=== PATIENT | female | born 1945 | race African-American/Black ===

== ENCOUNTER 2017-02-06 17:31 | Emergency (ER) | payer MEDICARE, MEDICAID ==
[~2017-02-06] VITALS: Ht 160 cm; Wt 60.0 kg
[2017-02-06 23:09] LABS: BASOPHILS % 0.5 % (0.0-2.0); EOSINOPHILS % 3.6 % (0.0-5.0); HEMATOCRIT. 34.5 % (36.0-48.0); HEMOGLOBIN. 11.6 g/dL (12.0-16.0); LYMPHOCYTES % 19.5 % (20.0-50.0); MEAN CORPUSCULAR HEMOGLOBIN 30.3 pg (28.0-32.0); MEAN CORPUSCULAR VOLUME 90.2 fL (81.0-99.0); MEAN PLATELET VOLUME 7.7 fl (7.4-10.4); MONOCYTES % 9.3 % (2.0-8.0); NEUTROPHILS % 67.1 % (40.0-76.0); PLATELET 199 x1000/uL (130-400); RED BLOOD CELL COUNT 3.83 mill/uL (4.2-5.4); RED CELL DISTRIBUTION WIDTH 13.9 % (11.6-14.6)
[2017-02-06 23:13] LABS: CHLORIDE 108 mEq/L (98-107); PROTHROMBIN TIME 10.7 sec (9.4-11.6)
[2017-02-06 23:21] LABS: CARBON DIOXIDE 32 mEq/L (21-32)
[2017-02-06 23:28] LABS: CLARITY URINE CLOUDY (CLEAR); COLOR URINE YELLOW (YELLOW); KETONES URINE NEGATIVE (NEGATIVE); LEUKOCYTE ESTERASE URINE NEGATIVE (NEGATIVE); NITRITE URINE NEGATIVE (NEGATIVE); OCCULT BLOOD URINE NEGATIVE (NEGATIVE); PH URINE 6.5 (4.5-8.0); PROTEIN URINE NEGATIVE (NEGATIVE); UROBILINOGEN URINE 0.2 E.U./dL (0.2-1.0)
[2017-02-06 23:44] LABS: *AMPHETAMINES SCREEN URINE NEGATIVE (NEGATIVE); *BARBITURATES SCREEN URINE NEGATIVE (NEGATIVE); *BENZODIAZEPINES SCREEN URINE NEGATIVE (NEGATIVE); *COCAINE SCREEN URINE NEGATIVE (NEGATIVE); CANNABINOID URINE SCREEN NEGATIVE (NEGATIVE); METHADONE URINE SCREEN NEGATIVE (NEGATIVE); OPIATES URINE SCREEN NEGATIVE (NEGATIVE); PHENCYCLIDINE URINE SCREEN NEGATIVE (NEGATIVE)
[2017-02-07 02:47] VITALS: BP 153/78
== END 2017-02-07 02:47 | disposition home or self-care (01) ==
LOC: ER 18:02
DX: R19.7 Diarrhea, unspecified (principal); I49.1 Atrial premature depolarization; I10 Essential (primary) hypertension; E11.9 Type 2 diabetes mellitus without complications; J44.9 Chronic obstructive pulmonary disease, unspecified; G40.909 Epilepsy, unspecified, not intractable, without status epilepticus; Z86.59 Personal history of other mental and behavioral disorders; K21.9 Gastro-esophageal reflux disease without esophagitis; Z88.8 Allergy status to other drugs, medicaments and biological substances
CPT/HCPCS: 36415; 71010; 80053; 80305; 81001; 83690; 85025; 85610; 93005; 99285

== ENCOUNTER 2018-02-07 11:35 | Inpatient (IN) | payer MEDICARE, MEDICAID ==
[~2018-02-07] VITALS: Ht 152.6 cm; Wt 49.4 kg
[~2018-02-07 11:35] MED LIST: ASPI-1159 MT; BENA20TA10 MT; BENZ0.5T3 PO; LIP40 MT; MEMA10TA2 PO; METF-414 PO; METO-396 MT; MIRT15TA MT; MULT-1146 MT; OLAN2.5T3 MT; RISP1 MT; ZET10 PO
[2018-02-07] MEDS ORDERED: SODIUM CHLORIDE 0.9% 1,000 ML IV ONE (12:05)
[2018-02-07 12:52] LABS: HEMATOCRIT. 30.6 % (36.0-48.0); MEAN CORPUSCULAR HEMOGLOBIN 31.8 pg (28.0-32.0); MEAN CORPUSCULAR VOLUME 96.9 fL (81.0-99.0); RED BLOOD CELL COUNT 3.16 mill/uL (4.2-5.4); RED CELL DISTRIBUTION WIDTH 19.3 % (11.6-14.6)
[2018-02-07 12:57] LABS: CHLORIDE 108 mEq/L (98-107)
[2018-02-07 13:17] LABS: PLATELET ESTIMATE NORMAL
[2018-02-07 13:19] LABS: MEAN PLATELET VOLUME 9.7 fl (7.4-10.4); PLATELET 230 x1000/uL (130-400)
[2018-02-07 13:40] LABS: CLARITY URINE CLOUDY (CLEAR); COLOR URINE YELLOW (YELLOW); KETONES URINE NEGATIVE (NEGATIVE); LEUKOCYTE ESTERASE URINE NEGATIVE (NEGATIVE); NITRITE URINE NEGATIVE (NEGATIVE); OCCULT BLOOD URINE NEGATIVE (NEGATIVE); PROTEIN URINE NEGATIVE (NEGATIVE); SPECIFIC GRAVITY URINE 1.013 (1.005-1.030); UROBILINOGEN URINE 0.2 E.U./dL (0.2-1.0)
[2018-02-07] MEDS ORDERED: LEVOFLOXACIN 500MG PREMIX 100 ML IV SCH (14:30)
[2018-02-07] MEDS ORDERED: ONDANSETRON HCL 4MG/2ML INJ IV PRN (14:30)
[2018-02-07] MEDS ORDERED: HYDROMORPHONE HCL/PF 2MG/ML CPJ IV PRN (14:30)
[2018-02-07] MEDS ORDERED: IPRATROPIUM/ALBUTEROL 0.5-3(2.5)MG/3ML NEB INH SCH (14:30)
[2018-02-07] MEDS ORDERED: ACETAMINOPHEN 325MG TABLET PO PRN (14:30)
[2018-02-07] MEDS ORDERED: CLONIDINE 0.1MG TABLET PO PRN (14:30)
[2018-02-07 14:33] LABS: PROTHROMBIN TIME 10.1 sec (9.1-11.1)
[2018-02-07] MEDS ORDERED: FLUCONAZOLE 50MG TABLET PO ONE (14:45)
[2018-02-07] MEDS ORDERED: FLUCONAZOLE 100MG TABLET PO ONE (14:45)
[2018-02-07] MEDS ORDERED: METHYLPREDNISOLONE SOD SUCC 125 MG/2 ML VIAL IV ONE (15:15)
[2018-02-07] MEDS ORDERED: ALBUTEROL (0.083%) 2.5MG/3ML NEB HHN ONE (15:15)
[2018-02-07] MEDS ORDERED: ALBUTEROL (0.083%) 2.5MG/3ML NEB ONE (15:21)
[2018-02-07] MEDS ORDERED: IPRATROPIUM BROMIDE (0.02%) 0.5MG/2.5ML NEB ONE (15:22)
[2018-02-07] MEDS ORDERED: ETOMIDATE 2MG/ML 10ML VIAL IV ONE ×2 (15:39→18:45)
[2018-02-07] MEDS ORDERED: VECURONIUM BROMIDE 10 MG/VIAL IV ONE ×2 (15:39→18:45)
[2018-02-07 16:18] LABS: BG BILEVEL POS AIRWAY PRESSURE 15/5; BG CARBOXYHEMOGLOBIN 0.4 % (0.5-1.5); BG FRACTION INSPIRED OXYGEN 100; BG HCO3 ACT 38.7 mmol/L (22.0-26.0); BG METHEMOGLOBIN 0.3 % (0.0-1.5); BG OXYHEMOGLOBIN 98.3 % (94.0-97.0); BG PCO2 82.2 mmHg (35.0-45.0); BG PH 7.291 (7.350-7.450); BG PO2 170.7 mmHg (75.0-100.0); BG SAMPLE SITE RIGHT RADIAL; BG TOTAL HEMOGLOBIN 9.8 g/dL (12.0-18.0); BG VENT MODE MASK - BIPAP; BG VENT RATE 20 set
[2018-02-07] MEDS ORDERED: IPRATROPIUM/ALBUTEROL 0.5-3(2.5)MG/3ML NEB HHN PRN (16:30)
[2018-02-07 18:38] LABS: BG BASE EXCESS 11.5 mmol/L (-2.0-2.0); BG BILEVEL POS AIRWAY PRESSURE 15/5; BG CARBOXYHEMOGLOBIN 0.1 % (0.5-1.5); BG DEOXYHEMOGLOBIN 2.1 % (0.0-5.0); BG FRACTION INSPIRED OXYGEN 100; BG HCO3 ACT 40.3 mmol/L (22.0-26.0); BG METHEMOGLOBIN 0.1 % (0.0-1.5); BG OXYGEN SATURATION 97.9 % (92.0-98.5); BG OXYHEMOGLOBIN 97.7 % (94.0-97.0); BG PCO2 83.3 mmHg (35.0-45.0); BG PH 7.303 (7.350-7.450); BG PO2 112.4 mmHg (75.0-100.0); BG SAMPLE SITE RIGHT RADIAL; BG VENT MODE MASK - BIPAP; BG VENT RATE 24 set
[2018-02-07] MEDS ORDERED: PROPOFOL 10MG/ML 100ML 100 ML IV ONE (18:45)
[2018-02-07 20:01] LABS: BG BASE EXCESS 10.4 mmol/L (-2.0-2.0); BG CARBOXYHEMOGLOBIN 0.5 % (0.5-1.5); BG DEOXYHEMOGLOBIN 2.9 % (0.0-5.0); BG FRACTION INSPIRED OXYGEN 70; BG HCO3 ACT 36.1 mmol/L (22.0-26.0); BG METHEMOGLOBIN 0.2 % (0.0-1.5); BG OXYGEN SATURATION 97.1 % (92.0-98.5); BG OXYHEMOGLOBIN 96.4 % (94.0-97.0); BG PCO2 53.9 mmHg (35.0-45.0); BG PH 7.444 (7.350-7.450); BG PO2 82.8 mmHg (75.0-100.0); BG SAMPLE SITE LEFT RADIAL; BG TIDAL VOLUME(mL) 450 mL; BG TOTAL HEMOGLOBIN 11.7 g/dL (12.0-18.0); BG VENT MODE VENT - A/C; BG VENT RATE 16 set
[2018-02-07] MEDS ORDERED: PROPOFOL 10MG/ML 100ML 100 ML IV PRN (20:45)
[2018-02-07] MEDS ORDERED: PIPERACILLIN/TAZ 3.375G PREMIX 50 ML IV SCH (20:45)
[2018-02-07] MEDS ORDERED: VANCOMYCIN 1 G PREMIX 200 ML IV NR (21:30)
[2018-02-07] MEDS ORDERED: PIPERACILLIN/TAZ 3.375G PREMIX 50 ML IV NR (21:30)
[2018-02-07] MEDS ORDERED: DEXT 5%/0.45% NACL 1000ML 1,000 ML IV SCH (23:00)
[2018-02-07] MEDS: METHYLPREDNISOLONE SOD SUCC 40 MG/ML VIAL IV SCH (23:48)
[2018-02-07 23:58] VITALS: BP 107/67
[2018-02-08] VITALS (92 sets, daily range): BP systolic 79–139; BP diastolic 50–84
[2018-02-08] MEDS: IPRATROPIUM/ALBUTEROL 0.5-3(2.5)MG/3ML NEB HHN SCH ×6 (00:23→20:01)
[2018-02-08] MEDS: PIPERACILLIN/TAZ 2.25G PREMIX 50 ML IV SCH ×4 (05:34→23:58)
[2018-02-08 06:24] LABS: HEMATOCRIT. 26.3 % (36.0-48.0); HEMOGLOBIN. 8.8 g/dL (12.0-16.0); MEAN CORPUSCULAR VOLUME 95.3 fL (81.0-99.0); MEAN PLATELET VOLUME 9.1 fl (7.4-10.4); PLATELET 106 x1000/uL (130-400); RED BLOOD CELL COUNT 2.76 mill/uL (4.2-5.4); RED CELL DISTRIBUTION WIDTH 18.9 % (11.6-14.6)
[2018-02-08 06:47] LABS: CHLORIDE 107 mEq/L (98-107)
[2018-02-08 06:55] LABS: LDL CHOLESTEROL 52 mg/dL (5-100)
[2018-02-08 06:57] LABS: HDL CHOLESTEROL 64 mg/dL (40-59)
[2018-02-08 07:25] LABS: TOTAL IRON BINDING CAPACITY 187 ug/dL (250-450)
[2018-02-08 08:06] LABS: BG BASE EXCESS 7.8 mmol/L (-2.0-2.0); BG CARBOXYHEMOGLOBIN 0.1 % (0.5-1.5); BG DEOXYHEMOGLOBIN 2.4 % (0.0-5.0); BG FRACTION INSPIRED OXYGEN 70; BG HCO3 ACT 32.7 mmol/L (22.0-26.0); BG METHEMOGLOBIN 0.3 % (0.0-1.5); BG OXYGEN SATURATION 97.6 % (92.0-98.5); BG OXYHEMOGLOBIN 97.2 % (94.0-97.0); BG PCO2 48.6 mmHg (35.0-45.0); BG PH 7.446 (7.350-7.450); BG PO2 100.4 mmHg (75.0-100.0); BG SAMPLE SITE RIGHT RADIAL; BG TIDAL VOLUME(mL) 450 mL; BG TOTAL HEMOGLOBIN 8.5 g/dL (12.0-18.0); BG VENT MODE VENT - A/C; BG VENT RATE 14 set
[2018-02-08 09:05] LABS: NUCLEATED RED BLOOD CELLS 1 /100 WBC; PLATELET ESTIMATE DECREASED
[2018-02-08] MEDS: ENOXAPARIN 40MG/0.4ML SYR SUBCUT SCH (09:15)
[2018-02-08] MEDS: METHYLPREDNISOLONE SOD SUCC 40 MG/ML VIAL IV SCH ×3 (09:15→23:58)
[2018-02-08] MEDS ORDERED: POTASSIUM CHLORIDE 20MEQ/PACKET PO NR (10:15)
[2018-02-08] MEDS: DEXTROSE 5% WATER 1,000 ML IV SCH (10:36)
[2018-02-08] MEDS: VANCOMYCIN 750 MG PREMIX 150 ML IV SCH (11:43)
[2018-02-08] MEDS: PANTOPRAZOLE SODIUM 40 MG/VIAL IV SCH (13:58)
[2018-02-08] MEDS: NYSTATIN POWDER 15GM TOP SCH (18:00)
[2018-02-08] MEDS: LEVETIRACETAM 500 MG in SODIUM CHLORIDE 0.9% 100 ML IV SCH (21:02)
[2018-02-08 21:43] LABS: *AMPHETAMINES SCREEN URINE NEGATIVE (NEGATIVE); *BARBITURATES SCREEN URINE NEGATIVE (NEGATIVE)
[2018-02-08 21:44] LABS: *BENZODIAZEPINES SCREEN URINE NEGATIVE (NEGATIVE); *COCAINE SCREEN URINE NEGATIVE (NEGATIVE); CANNABINOID URINE SCREEN NEGATIVE (NEGATIVE); METHADONE URINE SCREEN NEGATIVE (NEGATIVE); OPIATES URINE SCREEN PRESUMTIVE POSITIVE (NEGATIVE); PHENCYCLIDINE URINE SCREEN NEGATIVE (NEGATIVE)
[2018-02-08 22:29] LABS: ETHANOL BLOOD < 10 mg/dL
[2018-02-08 22:35] LABS: T4 FREE 0.58 ng/dL (0.76-1.46)
[2018-02-08 22:48] LABS: FOLIC ACID (FOLATE) SERUM >20 ng/mL ng/mL (>5.38)
[2018-02-08 23:00] LABS: VITAMIN B12 SERUM 1603 pg/mL (211-911)
[2018-02-08] MEDS: PROPOFOL 10MG/ML 100ML 100 ML IV PRN (23:04)
[2018-02-09] VITALS (95 sets, daily range): BP systolic 84–128; BP diastolic 45–84
[2018-02-09] MEDS: IPRATROPIUM/ALBUTEROL 0.5-3(2.5)MG/3ML NEB HHN SCH ×6 (00:11→20:09)
[2018-02-09] MEDS: DEXTROSE 5% WATER 1,000 ML IV SCH (04:07)
[2018-02-09] MEDS: PIPERACILLIN/TAZ 2.25G PREMIX 50 ML IV SCH ×3 (05:33→17:47)
[2018-02-09 06:06] LABS: HEMATOCRIT. 23.9 % (36.0-48.0); MEAN CORPUSCULAR HEMOGLOBIN 31.7 pg (28.0-32.0); MEAN CORPUSCULAR VOLUME 94.5 fL (81.0-99.0); MEAN PLATELET VOLUME 9.2 fl (7.4-10.4); PLATELET 107 x1000/uL (130-400); RED BLOOD CELL COUNT 2.53 mill/uL (4.2-5.4); RED CELL DISTRIBUTION WIDTH 18.6 % (11.6-14.6)
[2018-02-09] MEDS: VANCOMYCIN 750 MG PREMIX 150 ML IV SCH (06:06)
[2018-02-09 06:15] LABS: CHLORIDE 104 mEq/L (98-107)
[2018-02-09 06:25] LABS: PHOSPHORUS 2.6 mg/dL (2.5-4.9)
[2018-02-09] MEDS ORDERED: FERROUS SULFATE 300MG/5ML UDC PO SCH (07:00)
[2018-02-09] MEDS ORDERED: MAGNESIUM 2 G PREMIX 50 ML IV SCH (07:00)
[2018-02-09 07:26] LABS: PLATELET ESTIMATE DECREASED
[2018-02-09] MEDS ORDERED: NA PHOS,M-B/NA PHOS,DI-BA ENEMA 118ML PR ONE (08:15)
[2018-02-09] MEDS ORDERED: SORBITOL 70% SOLN 30ML PO SCH (08:15)
[2018-02-09] MEDS: PANTOPRAZOLE SODIUM 40 MG/VIAL IV SCH (09:10)
[2018-02-09] MEDS: PROPOFOL 10MG/ML 100ML 100 ML IV PRN (09:10)
[2018-02-09] MEDS: FERROUS SULFATE 300MG/5ML UDC PO SCH ×3 (09:11→17:47)
[2018-02-09] MEDS: FUROSEMIDE 40MG/4ML VIAL IVP SCH (09:11)
[2018-02-09] MEDS: METHYLPREDNISOLONE SOD SUCC 40 MG/ML VIAL IV SCH (09:11)
[2018-02-09] MEDS: POTASSIUM CHLORIDE 20MEQ/PACKET PO SCH (09:12)
[2018-02-09] MEDS: ENOXAPARIN 40MG/0.4ML SYR SUBCUT SCH (09:19)
[2018-02-09] MEDS: LEVETIRACETAM 500 MG in SODIUM CHLORIDE 0.9% 100 ML IV SCH ×2 (09:20→21:00)
[2018-02-09 11:47] LABS: BG BASE EXCESS 10.2 mmol/L (-2.0-2.0); BG CARBOXYHEMOGLOBIN 0.3 % (0.5-1.5); BG DEOXYHEMOGLOBIN 1.4 % (0.0-5.0); BG HCO3 ACT 35.7 mmol/L (22.0-26.0); BG METHEMOGLOBIN 0.1 % (0.0-1.5); BG OXYGEN SATURATION 98.6 % (92.0-98.5); BG OXYHEMOGLOBIN 98.2 % (94.0-97.0); BG PCO2 54.1 mmHg (35.0-45.0); BG PH 7.437 (7.350-7.450); BG PO2 142.7 mmHg (75.0-100.0); BG SAMPLE SITE RIGHT BRACHIAL; BG TIDAL VOLUME(mL) 450 mL; BG VENT MODE VENT - A/C; BG VENT RATE 14 set
[2018-02-09] MEDS: NYSTATIN POWDER 15GM TOP SCH ×2 (12:36→17:47)
[2018-02-09] MEDS ORDERED: LIDOCAINE HCL 1% 20ML VIAL (Pyxis) INJ ONE (13:13)
[2018-02-10] VITALS (98 sets, daily range): BP systolic 70–142; BP diastolic 38–84
[2018-02-10] MEDS: IPRATROPIUM/ALBUTEROL 0.5-3(2.5)MG/3ML NEB HHN SCH ×8 (00:45→23:42)
[2018-02-10 05:15] LABS: HEMATOCRIT. 22.9 % (36.0-48.0); HEMOGLOBIN. 7.8 g/dL (12.0-16.0); MEAN CORPUSCULAR HEMOGLOBIN 31.6 pg (28.0-32.0); MEAN CORPUSCULAR VOLUME 93.3 fL (81.0-99.0); MEAN PLATELET VOLUME 8.8 fl (7.4-10.4); PLATELET 104 x1000/uL (130-400); RED BLOOD CELL COUNT 2.45 mill/uL (4.2-5.4); RED CELL DISTRIBUTION WIDTH 18.2 % (11.6-14.6)
[2018-02-10 05:21] LABS: CHLORIDE 99 mEq/L (98-107)
[2018-02-10 05:28] LABS: PHOSPHORUS 2.6 mg/dL (2.5-4.9)
[2018-02-10] MEDS: PROPOFOL 10MG/ML 100ML 100 ML IV PRN ×2 (05:59→18:10)
[2018-02-10] MEDS: PIPERACILLIN/TAZ 2.25G PREMIX 50 ML IV SCH ×5 (05:59→23:49)
[2018-02-10] MEDS: FERROUS SULFATE 300MG/5ML UDC PO SCH ×3 (06:11→18:09)
[2018-02-10 06:17] LABS: PLATELET ESTIMATE SLIGHTLY DECREASED
[2018-02-10 07:30] LABS: BG BASE EXCESS 5.1 mmol/L (-2.0-2.0); BG CARBOXYHEMOGLOBIN 0.3 % (0.5-1.5); BG DEOXYHEMOGLOBIN 1.7 % (0.0-5.0); BG FRACTION INSPIRED OXYGEN 70; BG HCO3 ACT 29.6 mmol/L (22.0-26.0); BG METHEMOGLOBIN 0.3 % (0.0-1.5); BG OXYGEN SATURATION 98.3 % (92.0-98.5); BG OXYHEMOGLOBIN 97.7 % (94.0-97.0); BG PCO2 43.2 mmHg (35.0-45.0); BG PH 7.453 (7.350-7.450); BG PO2 122.3 mmHg (75.0-100.0); BG SAMPLE SITE RIGHT BRACHIAL; BG TIDAL VOLUME(mL) 450 mL; BG TOTAL HEMOGLOBIN 8.1 g/dL (12.0-18.0); BG VENT MODE VENT - A/C; BG VENT RATE 14 set
[2018-02-10] MEDS: PANTOPRAZOLE SODIUM 40 MG/VIAL IV SCH (10:41)
[2018-02-10] MEDS: METHYLPREDNISOLONE SOD SUCC 40 MG/ML VIAL IV SCH (10:42)
[2018-02-10] MEDS: LEVETIRACETAM 500 MG in SODIUM CHLORIDE 0.9% 100 ML IV SCH ×2 (10:42→20:25)
[2018-02-10] MEDS: NOREPINEPHRINE 16 MG in DEXT 5% WATER 234 ML IV PRN (10:42)
[2018-02-10] MEDS: POTASSIUM CHLORIDE 20MEQ/PACKET PO SCH (10:43)
[2018-02-10] MEDS: ENOXAPARIN 40MG/0.4ML SYR SUBCUT SCH (10:49)
[2018-02-10] MEDS: FUROSEMIDE 40MG/4ML VIAL IVP SCH (10:49)
[2018-02-10] MEDS: NYSTATIN POWDER 15GM TOP SCH ×2 (10:50→18:22)
[2018-02-10] MEDS ORDERED: POTASSIUM CHLORIDE 20MEQ/PACKET PO NR (12:00)
[2018-02-10] MEDS ORDERED: SORBITOL 70% SOLN 30ML PO NR (16:15)
[2018-02-10] MEDS: VANCOMYCIN 750 MG PREMIX 150 ML IV SCH ×2 (18:22)
[2018-02-10] MEDS ORDERED: DEXTROSE 50% WATER 50ML SYRINGE IV PRN (19:30)
[2018-02-10] MEDS: BLOOD SUGAR DIAGNOSTIC STRIP TEST SCH (23:49)
[2018-02-10] MEDS: INSULIN LISPRO 100 UNITS/ML SUBCUT SCH (23:56)
[2018-02-11] VITALS (96 sets, daily range): BP systolic 77–155; BP diastolic 48–87
[2018-02-11] MEDS: PROPOFOL 10MG/ML 100ML 100 ML IV PRN ×3 (02:57→20:31)
[2018-02-11] MEDS: IPRATROPIUM/ALBUTEROL 0.5-3(2.5)MG/3ML NEB HHN SCH ×5 (04:13→19:53)
[2018-02-11 05:06] LABS: HEMATOCRIT. 29.2 % (36.0-48.0); HEMOGLOBIN. 9.6 g/dL (12.0-16.0); MEAN CORPUSCULAR HEMOGLOBIN 30.9 pg (28.0-32.0); MEAN CORPUSCULAR VOLUME 93.8 fL (81.0-99.0); MEAN PLATELET VOLUME 8.9 fl (7.4-10.4); PLATELET 95 x1000/uL (130-400); RED BLOOD CELL COUNT 3.12 mill/uL (4.2-5.4); RED CELL DISTRIBUTION WIDTH 18.6 % (11.6-14.6)
[2018-02-11] MEDS: BLOOD SUGAR DIAGNOSTIC STRIP TEST SCH ×3 (05:20→18:01)
[2018-02-11] MEDS: INSULIN LISPRO 100 UNITS/ML SUBCUT SCH ×3 (05:25→18:15)
[2018-02-11 05:31] LABS: CHLORIDE 101 mEq/L (98-107)
[2018-02-11 05:38] LABS: PHOSPHORUS 2.9 mg/dL (2.5-4.9)
[2018-02-11] MEDS: PIPERACILLIN/TAZ 2.25G PREMIX 50 ML IV SCH ×2 (06:01→11:35)
[2018-02-11] MEDS: FERROUS SULFATE 300MG/5ML UDC PO SCH ×3 (06:01→18:15)
[2018-02-11 07:42] LABS: PLATELET ESTIMATE DECREASED
[2018-02-11] MEDS: PANTOPRAZOLE SODIUM 40 MG/VIAL IV SCH (08:37)
[2018-02-11] MEDS: METHYLPREDNISOLONE SOD SUCC 40 MG/ML VIAL IV SCH (08:37)
[2018-02-11] MEDS: POTASSIUM CHLORIDE 20MEQ/PACKET PO SCH (08:37)
[2018-02-11] MEDS: FUROSEMIDE 40MG/4ML VIAL IVP SCH (08:37)
[2018-02-11] MEDS: NYSTATIN POWDER 15GM TOP SCH ×2 (08:40→18:01)
[2018-02-11 08:58] LABS: BG BASE EXCESS 7.4 mmol/L (-2.0-2.0); BG CARBOXYHEMOGLOBIN 0.1 % (0.5-1.5); BG DEOXYHEMOGLOBIN 10.5 % (0.0-5.0); BG FRACTION INSPIRED OXYGEN 60; BG HCO3 ACT 33.2 mmol/L (22.0-26.0); BG METHEMOGLOBIN 0.3 % (0.0-1.5); BG OXYGEN SATURATION 89.5 % (92.0-98.5); BG OXYHEMOGLOBIN 89.1 % (94.0-97.0); BG PCO2 53.3 mmHg (35.0-45.0); BG PH 7.412 (7.350-7.450); BG PO2 60.8 mmHg (75.0-100.0); BG SAMPLE SITE RIGHT RADIAL; BG TIDAL VOLUME(mL) 450 mL; BG TOTAL HEMOGLOBIN 10.6 g/dL (12.0-18.0); BG VENT MODE VENT - A/C; BG VENT RATE 14 set
[2018-02-11] MEDS: ENOXAPARIN 40MG/0.4ML SYR SUBCUT SCH (09:00)
[2018-02-11] MEDS: LEVETIRACETAM 500 MG in SODIUM CHLORIDE 0.9% 100 ML IV SCH ×2 (09:25→20:30)
[2018-02-11] MEDS: VANCOMYCIN 750 MG PREMIX 150 ML IV SCH (12:02)
[2018-02-11] MEDS: NOREPINEPHRINE 16 MG in DEXT 5% WATER 234 ML IV PRN (12:03)
[2018-02-11] MEDS ORDERED: SORBITOL 70% SOLN 30ML PO NR (14:30)
[2018-02-11] MEDS: MEROPENEM 1,000 MG in SODIUM CHLORIDE 0.9% 100 ML IV SCH ×2 (14:34→22:39)
[2018-02-11] MEDS: DOCUSATE SODIUM SUGAR FREE 100MG/10ML UDC NG SCH (18:00)
[2018-02-11] MEDS: METOCLOPRAMIDE HCL 10MG/2ML VIAL IV SCH (18:01)
[2018-02-12] VITALS (89 sets, daily range): BP systolic 65–156; BP diastolic 36–80
[2018-02-12] MEDS: IPRATROPIUM/ALBUTEROL 0.5-3(2.5)MG/3ML NEB HHN SCH ×6 (00:21→20:37)
[2018-02-12] MEDS: BLOOD SUGAR DIAGNOSTIC STRIP TEST SCH ×4 (00:22→17:25)
[2018-02-12] MEDS: METOCLOPRAMIDE HCL 10MG/2ML VIAL IV SCH ×4 (00:22→17:25)
[2018-02-12] MEDS: INSULIN LISPRO 100 UNITS/ML SUBCUT SCH ×4 (05:31→17:25)
[2018-02-12] MEDS: FERROUS SULFATE 300MG/5ML UDC PO SCH ×3 (05:32→17:25)
[2018-02-12 05:51] LABS: HEMATOCRIT. 23.5 % (36.0-48.0); HEMOGLOBIN. 8.1 g/dL (12.0-16.0); MEAN CORPUSCULAR HEMOGLOBIN 32.2 pg (28.0-32.0); MEAN CORPUSCULAR VOLUME 93.5 fL (81.0-99.0); MEAN PLATELET VOLUME 9.6 fl (7.4-10.4); PLATELET 126 x1000/uL (130-400); RED BLOOD CELL COUNT 2.51 mill/uL (4.2-5.4); RED CELL DISTRIBUTION WIDTH 18.1 % (11.6-14.6)
[2018-02-12 06:15] LABS: CHLORIDE 100 mEq/L (98-107)
[2018-02-12] MEDS: PROPOFOL 10MG/ML 100ML 100 ML IV PRN ×2 (06:27→17:30)
[2018-02-12 08:24] LABS: BG BASE EXCESS 9.3 mmol/L (-2.0-2.0); BG CARBOXYHEMOGLOBIN 0.3 % (0.5-1.5); BG DEOXYHEMOGLOBIN 3.5 % (0.0-5.0); BG FRACTION INSPIRED OXYGEN 70; BG METHEMOGLOBIN 0.1 % (0.0-1.5); BG OXYGEN SATURATION 96.5 % (92.0-98.5); BG OXYHEMOGLOBIN 96.1 % (94.0-97.0); BG PCO2 54.8 mmHg (35.0-45.0); BG PH 7.423 (7.350-7.450); BG PO2 96.5 mmHg (75.0-100.0); BG SAMPLE SITE RIGHT RADIAL; BG TIDAL VOLUME(mL) 450 mL; BG TOTAL HEMOGLOBIN 9.1 g/dL (12.0-18.0); BG VENT MODE VENT - A/C; BG VENT RATE 14 set
[2018-02-12] MEDS: DOCUSATE SODIUM SUGAR FREE 100MG/10ML UDC NG SCH (08:56)
[2018-02-12] MEDS: FUROSEMIDE 40MG/4ML VIAL IVP SCH (08:56)
[2018-02-12] MEDS: LEVETIRACETAM 500 MG in SODIUM CHLORIDE 0.9% 100 ML IV SCH ×2 (08:56→21:40)
[2018-02-12] MEDS: PANTOPRAZOLE SODIUM 40 MG/VIAL IV SCH (08:56)
[2018-02-12] MEDS: METHYLPREDNISOLONE SOD SUCC 40 MG/ML VIAL IV SCH (08:56)
[2018-02-12] MEDS: POTASSIUM CHLORIDE 20MEQ/PACKET PO SCH (08:57)
[2018-02-12] MEDS: MEROPENEM 1,000 MG in SODIUM CHLORIDE 0.9% 100 ML IV SCH ×2 (08:57→21:40)
[2018-02-12] MEDS: ENOXAPARIN 40MG/0.4ML SYR SUBCUT SCH (09:00)
[2018-02-12 09:48] LABS: PLATELET ESTIMATE SLIGHTLY DECREASED
[2018-02-12 12:22] LABS: BG BASE EXCESS 14.3 mmol/L (-2.0-2.0); BG CARBOXYHEMOGLOBIN 0.3 % (0.5-1.5); BG DEOXYHEMOGLOBIN 2.9 % (0.0-5.0); BG FRACTION INSPIRED OXYGEN 65; BG HCO3 ACT 41.1 mmol/L (22.0-26.0); BG METHEMOGLOBIN 0.3 % (0.0-1.5); BG OXYGEN SATURATION 97.1 % (92.0-98.5); BG OXYHEMOGLOBIN 96.5 % (94.0-97.0); BG PCO2 67.8 mmHg (35.0-45.0); BG PO2 98.8 mmHg (75.0-100.0); BG PRESSURE SUPPORT 14; BG SAMPLE SITE RIGHT RADIAL; BG TIDAL VOLUME(mL) 450 mL; BG TOTAL HEMOGLOBIN 8.8 g/dL (12.0-18.0); BG VENT MODE VENT - SIMV; BG VENT RATE 10 set
[2018-02-12] MEDS: NYSTATIN POWDER 15GM TOP SCH ×2 (17:24→17:25)
[2018-02-13] VITALS (104 sets, daily range): BP systolic 71–179; BP diastolic 45–90
[2018-02-13] MEDS: IPRATROPIUM/ALBUTEROL 0.5-3(2.5)MG/3ML NEB HHN SCH ×6 (00:40→19:37)
[2018-02-13] MEDS: METOCLOPRAMIDE HCL 10MG/2ML VIAL IV SCH ×4 (00:59→17:41)
[2018-02-13] MEDS: PROPOFOL 10MG/ML 100ML 100 ML IV PRN ×3 (01:01→18:32)
[2018-02-13 05:29] LABS: HEMATOCRIT. 23.6 % (36.0-48.0); HEMOGLOBIN. 7.7 g/dL (12.0-16.0); MEAN CORPUSCULAR HEMOGLOBIN 30.8 pg (28.0-32.0); MEAN CORPUSCULAR VOLUME 94.4 fL (81.0-99.0); MEAN PLATELET VOLUME 10.3 fl (7.4-10.4); PLATELET 156 x1000/uL (130-400); RED CELL DISTRIBUTION WIDTH 18.5 % (11.6-14.6)
[2018-02-13 05:33] LABS: CHLORIDE 102 mEq/L (98-107)
[2018-02-13 05:43] LABS: PHOSPHORUS 2.1 mg/dL (2.5-4.9)
[2018-02-13] MEDS: INSULIN LISPRO 100 UNITS/ML SUBCUT SCH ×4 (06:00→17:36)
[2018-02-13] MEDS ORDERED: POTASSIUM PHOS,M-BASIC-D-BASIC 10 MMOL in DEXT 5% WATER 246.6667 ML IV SCH (06:00)
[2018-02-13] MEDS: BLOOD SUGAR DIAGNOSTIC STRIP TEST SCH ×4 (06:24→17:37)
[2018-02-13 08:27] LABS: BG BASE EXCESS 15.8 mmol/L (-2.0-2.0); BG CARBOXYHEMOGLOBIN 0.1 % (0.5-1.5); BG DEOXYHEMOGLOBIN 3.3 % (0.0-5.0); BG FRACTION INSPIRED OXYGEN 65; BG METHEMOGLOBIN 0.5 % (0.0-1.5); BG OXYGEN SATURATION 96.7 % (92.0-98.5); BG OXYHEMOGLOBIN 96.1 % (94.0-97.0); BG PCO2 55.7 mmHg (35.0-45.0); BG PH 7.485 (7.350-7.450); BG PO2 87.7 mmHg (75.0-100.0); BG SAMPLE SITE LEFT BRACHIAL; BG TIDAL VOLUME(mL) 450 mL; BG TOTAL HEMOGLOBIN 8.3 g/dL (12.0-18.0); BG VENT MODE VENT - A/C; BG VENT RATE 14 set
[2018-02-13] MEDS: METHYLPREDNISOLONE SOD SUCC 40 MG/ML VIAL IV SCH (08:54)
[2018-02-13] MEDS: FUROSEMIDE 40MG/4ML VIAL IVP SCH (08:54)
[2018-02-13] MEDS: PANTOPRAZOLE SODIUM 40 MG/VIAL IV SCH (08:54)
[2018-02-13] MEDS: FERROUS SULFATE 300MG/5ML UDC PO SCH ×3 (08:54→17:35)
[2018-02-13] MEDS: DOCUSATE SODIUM SUGAR FREE 100MG/10ML UDC NG SCH (08:54)
[2018-02-13] MEDS: NOREPINEPHRINE 16 MG in DEXT 5% WATER 234 ML IV PRN (08:54)
[2018-02-13] MEDS: POTASSIUM CHLORIDE 20MEQ/PACKET PO SCH (08:55)
[2018-02-13] MEDS: LEVETIRACETAM 500 MG in SODIUM CHLORIDE 0.9% 100 ML IV SCH ×2 (08:55→20:57)
[2018-02-13] MEDS: ENOXAPARIN 40MG/0.4ML SYR SUBCUT SCH (08:55)
[2018-02-13] MEDS: NYSTATIN POWDER 15GM TOP SCH ×2 (09:00→17:36)
[2018-02-13] MEDS: MEROPENEM 1,000 MG in SODIUM CHLORIDE 0.9% 100 ML IV SCH ×2 (09:00→20:57)
[2018-02-13 09:36] LABS: PLATELET ESTIMATE NORMAL
[2018-02-13 17:05] LABS: BG BASE EXCESS 13.2 mmol/L (-2.0-2.0); BG DEOXYHEMOGLOBIN 1.9 % (0.0-5.0); BG FRACTION INSPIRED OXYGEN 65; BG HCO3 ACT 38.6 mmol/L (22.0-26.0); BG METHEMOGLOBIN 0.3 % (0.0-1.5); BG OXYGEN SATURATION 98.1 % (92.0-98.5); BG OXYHEMOGLOBIN 97.8 % (94.0-97.0); BG PCO2 53.7 mmHg (35.0-45.0); BG PH 7.474 (7.350-7.450); BG PO2 111.3 mmHg (75.0-100.0); BG PRESSURE SUPPORT 14; BG SAMPLE SITE LEFT RADIAL; BG TIDAL VOLUME(mL) 450 mL; BG TOTAL HEMOGLOBIN 10.3 g/dL (12.0-18.0); BG VENT MODE VENT - SIMV; BG VENT RATE 10 set
[2018-02-14] VITALS (93 sets, daily range): BP systolic 74–157; BP diastolic 46–93
[2018-02-14] MEDS: BLOOD SUGAR DIAGNOSTIC STRIP TEST SCH ×5 (00:15→23:30)
[2018-02-14] MEDS: METOCLOPRAMIDE HCL 10MG/2ML VIAL IV SCH ×5 (00:16→23:30)
[2018-02-14] MEDS: IPRATROPIUM/ALBUTEROL 0.5-3(2.5)MG/3ML NEB HHN SCH ×6 (00:31→20:29)
[2018-02-14] MEDS: PROPOFOL 10MG/ML 100ML 100 ML IV PRN ×2 (02:36→16:15)
[2018-02-14 05:36] LABS: HEMOGLOBIN. 9.2 g/dL (12.0-16.0); MEAN CORPUSCULAR HEMOGLOBIN 31.5 pg (28.0-32.0); MEAN CORPUSCULAR VOLUME 92.6 fL (81.0-99.0); MEAN PLATELET VOLUME 9.5 fl (7.4-10.4); PLATELET 153 x1000/uL (130-400); RED BLOOD CELL COUNT 2.91 mill/uL (4.2-5.4); RED CELL DISTRIBUTION WIDTH 16.7 % (11.6-14.6)
[2018-02-14 05:55] LABS: CHLORIDE 99 mEq/L (98-107)
[2018-02-14] MEDS: INSULIN LISPRO 100 UNITS/ML SUBCUT SCH ×5 (06:00→23:30)
[2018-02-14 06:11] LABS: PHOSPHORUS 2.8 mg/dL (2.5-4.9)
[2018-02-14] MEDS: FERROUS SULFATE 300MG/5ML UDC PO SCH ×3 (07:04→16:56)
[2018-02-14] MEDS: ENOXAPARIN 40MG/0.4ML SYR SUBCUT SCH (09:00)
[2018-02-14] MEDS: MEROPENEM 1,000 MG in SODIUM CHLORIDE 0.9% 100 ML IV SCH ×2 (09:27→20:10)
[2018-02-14] MEDS: PANTOPRAZOLE SODIUM 40 MG/VIAL IV SCH (09:27)
[2018-02-14] MEDS: LEVETIRACETAM 500 MG in SODIUM CHLORIDE 0.9% 100 ML IV SCH ×2 (09:27→20:10)
[2018-02-14] MEDS: METHYLPREDNISOLONE SOD SUCC 40 MG/ML VIAL IV SCH (09:27)
[2018-02-14] MEDS: NYSTATIN POWDER 15GM TOP SCH ×2 (09:28→16:56)
[2018-02-14] MEDS: POTASSIUM CHLORIDE 20MEQ/PACKET PO SCH (09:28)
[2018-02-14] MEDS: FUROSEMIDE 40MG/4ML VIAL IVP SCH (09:28)
[2018-02-14] MEDS: DOCUSATE SODIUM SUGAR FREE 100MG/10ML UDC NG SCH (09:28)
[2018-02-14 09:35] LABS: BG CARBOXYHEMOGLOBIN 0.1 % (0.5-1.5); BG DEOXYHEMOGLOBIN 3.8 % (0.0-5.0); BG FRACTION INSPIRED OXYGEN 65; BG HCO3 ACT 39.7 mmol/L (22.0-26.0); BG METHEMOGLOBIN 0.3 % (0.0-1.5); BG OXYGEN SATURATION 96.2 % (92.0-98.5); BG OXYHEMOGLOBIN 95.8 % (94.0-97.0); BG PCO2 62.6 mmHg (35.0-45.0); BG PO2 84.7 mmHg (75.0-100.0); BG PRESSURE SUPPORT 14; BG SAMPLE SITE LEFT RADIAL; BG TIDAL VOLUME(mL) 450 mL; BG TOTAL HEMOGLOBIN 10.9 g/dL (12.0-18.0); BG VENT MODE VENT - SIMV; BG VENT RATE 6 set
[2018-02-14] MEDS ORDERED: LORAZEPAM 2MG/ML CPJ IV PRN (10:00)
[2018-02-14 12:36] LABS: PLATELET ESTIMATE NORMAL
[2018-02-14] MEDS: NOREPINEPHRINE 16 MG in DEXT 5% WATER 234 ML IV PRN (23:31)
[2018-02-15] VITALS (100 sets, daily range): BP systolic 70–132; BP diastolic 31–81
[2018-02-15] MEDS: IPRATROPIUM/ALBUTEROL 0.5-3(2.5)MG/3ML NEB HHN SCH ×6 (00:20→20:21)
[2018-02-15] MEDS: PROPOFOL 10MG/ML 100ML 100 ML IV PRN (03:49)
[2018-02-15 05:32] LABS: HEMATOCRIT. 26.9 % (36.0-48.0); MEAN CORPUSCULAR HEMOGLOBIN 31.6 pg (28.0-32.0); MEAN CORPUSCULAR VOLUME 94.2 fL (81.0-99.0); MEAN PLATELET VOLUME 9.9 fl (7.4-10.4); PLATELET 180 x1000/uL (130-400); RED BLOOD CELL COUNT 2.85 mill/uL (4.2-5.4); RED CELL DISTRIBUTION WIDTH 16.6 % (11.6-14.6)
[2018-02-15 05:38] LABS: CHLORIDE 101 mEq/L (98-107)
[2018-02-15] MEDS: INSULIN LISPRO 100 UNITS/ML SUBCUT SCH ×4 (06:00→23:34)
[2018-02-15] MEDS: BLOOD SUGAR DIAGNOSTIC STRIP TEST SCH ×3 (06:04→17:26)
[2018-02-15] MEDS: FERROUS SULFATE 300MG/5ML UDC PO SCH ×3 (06:05→17:26)
[2018-02-15] MEDS: METOCLOPRAMIDE HCL 10MG/2ML VIAL IV SCH ×4 (06:05→23:34)
[2018-02-15 07:44] LABS: BG BASE EXCESS 14.5 mmol/L (-2.0-2.0); BG CARBOXYHEMOGLOBIN 0.2 % (0.5-1.5); BG DEOXYHEMOGLOBIN 2.4 % (0.0-5.0); BG HCO3 ACT 40.7 mmol/L (22.0-26.0); BG METHEMOGLOBIN 0.3 % (0.0-1.5); BG OXYGEN SATURATION 97.6 % (92.0-98.5); BG OXYHEMOGLOBIN 97.1 % (94.0-97.0); BG PCO2 62.8 mmHg (35.0-45.0); BG PO2 104.9 mmHg (75.0-100.0); BG SAMPLE SITE RIGHT BRACHIAL; BG TIDAL VOLUME(mL) 450 mL; BG TOTAL HEMOGLOBIN 8.8 g/dL (12.0-18.0); BG VENT MODE VENT - A/C; BG VENT RATE 12 set
[2018-02-15 07:54] LABS: PLATELET ESTIMATE NORMAL
[2018-02-15] MEDS: LEVETIRACETAM 500 MG in SODIUM CHLORIDE 0.9% 100 ML IV SCH ×2 (09:00→20:28)
[2018-02-15] MEDS: MEROPENEM 1,000 MG in SODIUM CHLORIDE 0.9% 100 ML IV SCH ×2 (09:00→21:21)
[2018-02-15] MEDS: POTASSIUM CHLORIDE 20MEQ/PACKET PO SCH (09:01)
[2018-02-15] MEDS: PANTOPRAZOLE SODIUM 40 MG/VIAL IV SCH (09:01)
[2018-02-15] MEDS: FUROSEMIDE 40MG/4ML VIAL IVP SCH (09:01)
[2018-02-15] MEDS: DOCUSATE SODIUM SUGAR FREE 100MG/10ML UDC NG SCH (09:02)
[2018-02-15] MEDS: NYSTATIN POWDER 15GM TOP SCH ×2 (09:02→17:26)
[2018-02-15] MEDS: ENOXAPARIN 40MG/0.4ML SYR SUBCUT SCH (09:06)
[2018-02-15] MEDS: QUETIAPINE FUMARATE 25MG TABLET NG SCH ×2 (10:13→20:28)
[2018-02-15] MEDS: BUDESONIDE 0.5MG/2ML NEB HHN SCH ×2 (11:07→20:21)
[2018-02-15 11:53] LABS: BG BASE EXCESS 15.3 mmol/L (-2.0-2.0); BG CARBOXYHEMOGLOBIN 0.3 % (0.5-1.5); BG CPAP (cmH2O) 0 cm(H2O); BG DEOXYHEMOGLOBIN 2.3 % (0.0-5.0); BG HCO3 ACT 42.2 mmol/L (22.0-26.0); BG METHEMOGLOBIN 0.3 % (0.0-1.5); BG OXYGEN SATURATION 97.7 % (92.0-98.5); BG OXYHEMOGLOBIN 97.1 % (94.0-97.0); BG PCO2 66.4 mmHg (35.0-45.0); BG PH 7.421 (7.350-7.450); BG PO2 111.5 mmHg (75.0-100.0); BG SAMPLE SITE RIGHT BRACHIAL; BG TOTAL HEMOGLOBIN 10.3 g/dL (12.0-18.0); BG VENT MODE VENT - CPAP
[2018-02-16] VITALS (94 sets, daily range): BP systolic 76–130; BP diastolic 46–86
[2018-02-16] MEDS: IPRATROPIUM/ALBUTEROL 0.5-3(2.5)MG/3ML NEB HHN SCH ×6 (01:11→20:15)
[2018-02-16 05:07] LABS: HEMATOCRIT. 28.3 % (36.0-48.0); HEMOGLOBIN. 9.7 g/dL (12.0-16.0); MEAN CORPUSCULAR HEMOGLOBIN 31.9 pg (28.0-32.0); MEAN CORPUSCULAR VOLUME 93.5 fL (81.0-99.0); MEAN PLATELET VOLUME 9.2 fl (7.4-10.4); PLATELET 177 x1000/uL (130-400); RED BLOOD CELL COUNT 3.03 mill/uL (4.2-5.4); RED CELL DISTRIBUTION WIDTH 16.3 % (11.6-14.6)
[2018-02-16 05:23] LABS: CHLORIDE 97 mEq/L (98-107)
[2018-02-16 05:30] LABS: PHOSPHORUS 1.8 mg/dL (2.5-4.9)
[2018-02-16] MEDS: BLOOD SUGAR DIAGNOSTIC STRIP TEST SCH ×5 (06:01→23:17)
[2018-02-16] MEDS: METOCLOPRAMIDE HCL 10MG/2ML VIAL IV SCH ×3 (06:07→23:17)
[2018-02-16] MEDS: INSULIN LISPRO 100 UNITS/ML SUBCUT SCH ×4 (06:08→23:17)
[2018-02-16] MEDS: NOREPINEPHRINE 16 MG in DEXT 5% WATER 234 ML IV PRN ×2 (06:31→18:14)
[2018-02-16] MEDS: FERROUS SULFATE 300MG/5ML UDC PO SCH ×3 (07:38→18:14)
[2018-02-16] MEDS: BUDESONIDE 0.5MG/2ML NEB HHN SCH ×2 (07:59→20:15)
[2018-02-16 08:05] LABS: PLATELET ESTIMATE NORMAL
[2018-02-16] MEDS ORDERED: POTASSIUM PHOS,M-BASIC-D-BASIC 15 MMOL in DEXT 5% WATER 245 ML IV ONE (09:00)
[2018-02-16] MEDS: ENOXAPARIN 40MG/0.4ML SYR SUBCUT SCH (09:11)
[2018-02-16] MEDS: POTASSIUM CHLORIDE 20MEQ/PACKET PO SCH (09:11)
[2018-02-16] MEDS: QUETIAPINE FUMARATE 25MG TABLET NG SCH ×2 (09:11→20:44)
[2018-02-16] MEDS: NYSTATIN POWDER 15GM TOP SCH ×2 (09:11→17:00)
[2018-02-16] MEDS: MEROPENEM 1,000 MG in SODIUM CHLORIDE 0.9% 100 ML IV SCH ×2 (09:11→22:08)
[2018-02-16] MEDS: LEVETIRACETAM 500 MG in SODIUM CHLORIDE 0.9% 100 ML IV SCH ×2 (09:20→20:44)
[2018-02-16] MEDS ORDERED: POTASSIUM PHOS,M-BASIC-D-BASIC 10 MMOL in DEXT 5% WATER 246.6667 ML IV ONE (09:30)
[2018-02-16] MEDS: FUROSEMIDE 40MG/4ML VIAL IVP SCH (09:32)
[2018-02-16] MEDS: DOCUSATE SODIUM SUGAR FREE 100MG/10ML UDC NG SCH ×2 (10:46→18:14)
[2018-02-16] MEDS: PSYLLIUM SEED PACKET PO SCH ×2 (14:49→18:14)
[2018-02-16] MEDS: PHENYLEPHRINE 40 MG in DEXT 5% WATER 246 ML IV PRN ×2 (23:19→23:30)
[2018-02-17] VITALS (96 sets, daily range): BP systolic 57–137; BP diastolic 32–90
[2018-02-17] MEDS: IPRATROPIUM/ALBUTEROL 0.5-3(2.5)MG/3ML NEB HHN SCH ×6 (00:25→20:00)
[2018-02-17 05:28] LABS: HEMATOCRIT. 28.5 % (36.0-48.0); HEMOGLOBIN. 9.7 g/dL (12.0-16.0); MEAN CORPUSCULAR HEMOGLOBIN 31.8 pg (28.0-32.0); MEAN CORPUSCULAR VOLUME 93.9 fL (81.0-99.0); PLATELET 216 x1000/uL (130-400); RED BLOOD CELL COUNT 3.04 mill/uL (4.2-5.4); RED CELL DISTRIBUTION WIDTH 16.4 % (11.6-14.6)
[2018-02-17 05:31] LABS: CHLORIDE 97 mEq/L (98-107)
[2018-02-17 05:41] LABS: PHOSPHORUS 2.4 mg/dL (2.5-4.9)
[2018-02-17] MEDS: INSULIN LISPRO 100 UNITS/ML SUBCUT SCH ×3 (06:00→18:00)
[2018-02-17] MEDS: BLOOD SUGAR DIAGNOSTIC STRIP TEST SCH ×3 (06:14→18:01)
[2018-02-17] MEDS: METOCLOPRAMIDE HCL 10MG/2ML VIAL IV SCH ×3 (06:15→18:09)
[2018-02-17] MEDS: FERROUS SULFATE 300MG/5ML UDC PO SCH ×3 (06:15→18:09)
[2018-02-17 07:08] LABS: PLATELET ESTIMATE NORMAL
[2018-02-17] MEDS: BUDESONIDE 0.5MG/2ML NEB HHN SCH ×2 (08:19→20:04)
[2018-02-17] MEDS: FUROSEMIDE 40MG/4ML VIAL IVP SCH (08:51)
[2018-02-17] MEDS: LEVETIRACETAM 500 MG in SODIUM CHLORIDE 0.9% 100 ML IV SCH ×2 (08:51→20:36)
[2018-02-17] MEDS: PSYLLIUM SEED PACKET PO SCH ×3 (08:51→18:09)
[2018-02-17] MEDS: POTASSIUM CHLORIDE 20MEQ/PACKET PO SCH (08:51)
[2018-02-17] MEDS: DOCUSATE SODIUM SUGAR FREE 100MG/10ML UDC NG SCH ×2 (08:51→18:09)
[2018-02-17] MEDS: MEROPENEM 1,000 MG in SODIUM CHLORIDE 0.9% 100 ML IV SCH ×2 (08:52→20:20)
[2018-02-17] MEDS ORDERED: SORBITOL 70% SOLN 30ML PO SCH (09:00)
[2018-02-17] MEDS: QUETIAPINE FUMARATE 25MG TABLET NG SCH ×2 (09:43→20:21)
[2018-02-17] MEDS: NYSTATIN POWDER 15GM TOP SCH ×2 (09:44→18:10)
[2018-02-17] MEDS: ENOXAPARIN 40MG/0.4ML SYR SUBCUT SCH (09:46)
[2018-02-17] MEDS ORDERED: FUROSEMIDE 40MG/4ML VIAL IVP NR (10:05)
[2018-02-17] MEDS ORDERED: POTASSIUM PHOS,M-BASIC-D-BASIC 15 MMOL in DEXT 5% WATER 245 ML IV NR (11:30)
[2018-02-17] MEDS: NOREPINEPHRINE 16 MG in DEXT 5% WATER 234 ML IV PRN (11:48)
[2018-02-18] VITALS (98 sets, daily range): BP systolic 66–193; BP diastolic 31–138
[2018-02-18] MEDS: IPRATROPIUM/ALBUTEROL 0.5-3(2.5)MG/3ML NEB HHN SCH ×6 (00:13→21:01)
[2018-02-18] MEDS: BLOOD SUGAR DIAGNOSTIC STRIP TEST SCH ×4 (00:19→18:06)
[2018-02-18] MEDS: METOCLOPRAMIDE HCL 10MG/2ML VIAL IV SCH ×4 (00:19→18:04)
[2018-02-18] MEDS: NOREPINEPHRINE 16 MG in DEXT 5% WATER 234 ML IV PRN ×2 (00:51→16:22)
[2018-02-18 05:48] LABS: HEMATOCRIT. 26.8 % (36.0-48.0); MEAN CORPUSCULAR HEMOGLOBIN 31.5 pg (28.0-32.0); MEAN CORPUSCULAR VOLUME 93.6 fL (81.0-99.0); MEAN PLATELET VOLUME 9.9 fl (7.4-10.4); PLATELET 223 x1000/uL (130-400); RED BLOOD CELL COUNT 2.86 mill/uL (4.2-5.4); RED CELL DISTRIBUTION WIDTH 15.8 % (11.6-14.6)
[2018-02-18] MEDS: INSULIN LISPRO 100 UNITS/ML SUBCUT SCH ×4 (06:00→18:00)
[2018-02-18 06:01] LABS: CHLORIDE 95 mEq/L (98-107)
[2018-02-18 06:16] LABS: PHOSPHORUS 2.5 mg/dL (2.5-4.9)
[2018-02-18] MEDS: FERROUS SULFATE 300MG/5ML UDC PO SCH ×3 (06:28→18:04)
[2018-02-18] MEDS ORDERED: POTASSIUM CHLORIDE 20MEQ/PACKET PO NR (07:30)
[2018-02-18] MEDS: MEROPENEM 1,000 MG in SODIUM CHLORIDE 0.9% 100 ML IV SCH (07:35)
[2018-02-18 07:39] LABS: PLATELET ESTIMATE NORMAL
[2018-02-18] MEDS: BUDESONIDE 0.5MG/2ML NEB HHN SCH (08:26)
[2018-02-18] MEDS ORDERED: POTASSIUM CHLORIDE INJ 60 MEQ in DEXT 5% WATER 500 ML IV NR (08:30)
[2018-02-18] MEDS: POTASSIUM CHLORIDE 20MEQ/PACKET PO SCH (09:00)
[2018-02-18] MEDS: PSYLLIUM SEED PACKET PO SCH ×3 (09:02→18:04)
[2018-02-18] MEDS: DOCUSATE SODIUM SUGAR FREE 100MG/10ML UDC NG SCH ×2 (09:02→18:04)
[2018-02-18] MEDS: FUROSEMIDE 40MG/4ML VIAL IVP SCH (09:02)
[2018-02-18] MEDS: LEVETIRACETAM 500 MG in SODIUM CHLORIDE 0.9% 100 ML IV SCH ×2 (09:03→20:19)
[2018-02-18] MEDS: ENOXAPARIN 40MG/0.4ML SYR SUBCUT SCH (09:03)
[2018-02-18] MEDS: QUETIAPINE FUMARATE 25MG TABLET NG SCH ×2 (09:03→20:19)
[2018-02-18 09:17] LABS: BG BASE EXCESS 8.7 mmol/L (-2.0-2.0); BG CARBOXYHEMOGLOBIN 0.3 % (0.5-1.5); BG DEOXYHEMOGLOBIN 6.6 % (0.0-5.0); BG FRACTION INSPIRED OXYGEN 40; BG HCO3 ACT 32.5 mmol/L (22.0-26.0); BG METHEMOGLOBIN 0.2 % (0.0-1.5); BG OXYGEN SATURATION 93.4 % (92.0-98.5); BG OXYHEMOGLOBIN 92.9 % (94.0-97.0); BG PCO2 41.6 mmHg (35.0-45.0); BG PH 7.511 (7.350-7.450); BG PO2 64.7 mmHg (75.0-100.0); BG SAMPLE SITE RIGHT BRACHIAL; BG TIDAL VOLUME(mL) 450 mL; BG TOTAL HEMOGLOBIN 9.7 g/dL (12.0-18.0); BG VENT MODE VENT - A/C; BG VENT RATE 12 set
[2018-02-18] MEDS: LORAZEPAM 2MG/ML CPJ IV PRN (09:27)
[2018-02-18] MEDS: NYSTATIN POWDER 15GM TOP SCH ×2 (09:28→18:05)
[2018-02-18] MEDS ORDERED: SORBITOL 70% SOLN 30ML PO SCH (11:30)
[2018-02-18] MEDS ORDERED: BISACODYL 10MG SUPP PR SCH (11:30)
[2018-02-18] MEDS: MORPHINE SULFATE 10 MG/ML CPJ IV PRN ×2 (13:57→21:04)
[2018-02-19] VITALS (98 sets, daily range): BP systolic 81–157; BP diastolic 52–90
[2018-02-19] MEDS: METOCLOPRAMIDE HCL 10MG/2ML VIAL IV SCH ×4 (00:19→18:19)
[2018-02-19] MEDS: IPRATROPIUM/ALBUTEROL 0.5-3(2.5)MG/3ML NEB HHN SCH ×6 (00:54→20:36)
[2018-02-19 05:36] LABS: HEMATOCRIT. 23.1 % (36.0-48.0); MEAN CORPUSCULAR HEMOGLOBIN 32.6 pg (28.0-32.0); MEAN CORPUSCULAR VOLUME 94.2 fL (81.0-99.0); MEAN PLATELET VOLUME 9.4 fl (7.4-10.4); PLATELET 194 x1000/uL (130-400); RED BLOOD CELL COUNT 2.45 mill/uL (4.2-5.4); RED CELL DISTRIBUTION WIDTH 15.7 % (11.6-14.6)
[2018-02-19 05:46] LABS: CHLORIDE 97 mEq/L (98-107)
[2018-02-19] MEDS: INSULIN LISPRO 100 UNITS/ML SUBCUT SCH ×4 (06:00→18:00)
[2018-02-19] MEDS: BLOOD SUGAR DIAGNOSTIC STRIP TEST SCH ×4 (06:00→18:13)
[2018-02-19] MEDS: FERROUS SULFATE 300MG/5ML UDC PO SCH ×3 (06:04→18:19)
[2018-02-19] MEDS ORDERED: SORBITOL 70% SOLN 30ML PO SCH (08:00)
[2018-02-19 08:23] LABS: BG BASE EXCESS 9.2 mmol/L (-2.0-2.0); BG CARBOXYHEMOGLOBIN 0.4 % (0.5-1.5); BG DEOXYHEMOGLOBIN 3.9 % (0.0-5.0); BG FRACTION INSPIRED OXYGEN 45; BG HCO3 ACT 34.5 mmol/L (22.0-26.0); BG METHEMOGLOBIN 0.3 % (0.0-1.5); BG OXYGEN SATURATION 96.1 % (92.0-98.5); BG OXYHEMOGLOBIN 95.4 % (94.0-97.0); BG PCO2 51.6 mmHg (35.0-45.0); BG PH 7.443 (7.350-7.450); BG PO2 88.7 mmHg (75.0-100.0); BG SAMPLE SITE RIGHT RADIAL; BG TIDAL VOLUME(mL) 450 mL; BG TOTAL HEMOGLOBIN 9.5 g/dL (12.0-18.0); BG VENT MODE VENT - A/C; BG VENT RATE 12 set
[2018-02-19] MEDS: LEVETIRACETAM 500 MG in SODIUM CHLORIDE 0.9% 100 ML IV SCH ×2 (08:50→21:23)
[2018-02-19] MEDS: FUROSEMIDE 40MG/4ML VIAL IVP SCH (08:50)
[2018-02-19] MEDS: PSYLLIUM SEED PACKET PO SCH ×3 (08:50→18:19)
[2018-02-19] MEDS: DOCUSATE SODIUM SUGAR FREE 100MG/10ML UDC NG SCH ×2 (08:50→18:19)
[2018-02-19] MEDS: QUETIAPINE FUMARATE 25MG TABLET NG SCH ×2 (08:50→21:23)
[2018-02-19] MEDS: ENOXAPARIN 40MG/0.4ML SYR SUBCUT SCH (08:52)
[2018-02-19] MEDS: NYSTATIN POWDER 15GM TOP SCH ×2 (08:52→17:00)
[2018-02-19] MEDS: PANTOPRAZOLE SODIUM 40 MG/VIAL IV SCH (08:54)
[2018-02-19 13:42] LABS: PLATELET ESTIMATE NORMAL
[2018-02-19 18:17] LABS: BG BASE EXCESS 10.9 mmol/L (-2.0-2.0); BG CARBOXYHEMOGLOBIN 0.4 % (0.5-1.5); BG DEOXYHEMOGLOBIN 11.2 % (0.0-5.0); BG FRACTION INSPIRED OXYGEN 45; BG HCO3 ACT 35.3 mmol/L (22.0-26.0); BG METHEMOGLOBIN 0.2 % (0.0-1.5); BG OXYGEN SATURATION 88.7 % (92.0-98.5); BG OXYHEMOGLOBIN 88.2 % (94.0-97.0); BG PCO2 46.7 mmHg (35.0-45.0); BG PH 7.496 (7.350-7.450); BG PRESSURE SUPPORT 15; BG SAMPLE SITE LEFT BRACHIAL; BG TIDAL VOLUME(mL) 450 mL; BG TOTAL HEMOGLOBIN 9.2 g/dL (12.0-18.0); BG VENT MODE VENT - SIMV; BG VENT RATE 10 set
[2018-02-20] VITALS (102 sets, daily range): BP systolic 75–137; BP diastolic 48–98
[2018-02-20] MEDS: IPRATROPIUM/ALBUTEROL 0.5-3(2.5)MG/3ML NEB HHN SCH ×6 (00:38→19:53)
[2018-02-20] MEDS: METOCLOPRAMIDE HCL 10MG/2ML VIAL IV SCH ×4 (01:21→16:58)
[2018-02-20] MEDS: NOREPINEPHRINE 16 MG in DEXT 5% WATER 234 ML IV PRN (04:03)
[2018-02-20] MEDS: BLOOD SUGAR DIAGNOSTIC STRIP TEST SCH ×4 (05:52→18:00)
[2018-02-20] MEDS: INSULIN LISPRO 100 UNITS/ML SUBCUT SCH ×4 (05:53→18:00)
[2018-02-20 05:54] LABS: CHLORIDE 95 mEq/L (98-107)
[2018-02-20 06:01] LABS: BASOPHILS % 0.5 % (0.0-2.0); EOSINOPHILS % 0.3 % (0.0-5.0); HEMATOCRIT. 24.4 % (36.0-48.0); HEMOGLOBIN. 8.3 g/dL (12.0-16.0); MEAN CORPUSCULAR HEMOGLOBIN 32.2 pg (28.0-32.0); MEAN CORPUSCULAR VOLUME 94.7 fL (81.0-99.0); MEAN PLATELET VOLUME 9.4 fl (7.4-10.4); MONOCYTES % 6.7 % (2.0-8.0); NEUTROPHILS % 83.5 % (40.0-76.0); PLATELET 230 x1000/uL (130-400); RED BLOOD CELL COUNT 2.58 mill/uL (4.2-5.4); RED CELL DISTRIBUTION WIDTH 15.3 % (11.6-14.6)
[2018-02-20] MEDS: FERROUS SULFATE 300MG/5ML UDC PO SCH ×3 (06:17→16:57)
[2018-02-20] MEDS ORDERED: POTASSIUM CHLORIDE 20MEQ/PACKET PO SCH (08:00)
[2018-02-20 08:11] LABS: BG BASE EXCESS 10.5 mmol/L (-2.0-2.0); BG CARBOXYHEMOGLOBIN 0.3 % (0.5-1.5); BG DEOXYHEMOGLOBIN 1.4 % (0.0-5.0); BG FRACTION INSPIRED OXYGEN 60; BG HCO3 ACT 35.5 mmol/L (22.0-26.0); BG METHEMOGLOBIN 0.6 % (0.0-1.5); BG OXYGEN SATURATION 98.6 % (92.0-98.5); BG OXYHEMOGLOBIN 97.7 % (94.0-97.0); BG PCO2 50.9 mmHg (35.0-45.0); BG PH 7.461 (7.350-7.450); BG PO2 143.6 mmHg (75.0-100.0); BG PRESSURE SUPPORT 15; BG SAMPLE SITE RIGHT BRACHIAL; BG TIDAL VOLUME(mL) 450 mL; BG TOTAL HEMOGLOBIN 7.8 g/dL (12.0-18.0); BG VENT MODE VENT - SIMV; BG VENT RATE 10 set
[2018-02-20] MEDS: DOCUSATE SODIUM SUGAR FREE 100MG/10ML UDC NG SCH ×2 (08:50→16:58)
[2018-02-20] MEDS: PSYLLIUM SEED PACKET PO SCH ×3 (08:50→16:59)
[2018-02-20] MEDS: FUROSEMIDE 40MG/4ML VIAL IVP SCH (08:50)
[2018-02-20] MEDS: LEVETIRACETAM 500 MG in SODIUM CHLORIDE 0.9% 100 ML IV SCH ×2 (08:50→20:57)
[2018-02-20] MEDS: PANTOPRAZOLE SODIUM 40 MG/VIAL IV SCH (08:50)
[2018-02-20] MEDS: NYSTATIN POWDER 15GM TOP SCH ×2 (08:51→16:58)
[2018-02-20] MEDS: QUETIAPINE FUMARATE 25MG TABLET NG SCH ×2 (08:51→20:57)
[2018-02-20] MEDS ORDERED: MAGNESIUM 2 G PREMIX 50 ML IV SCH (11:00)
[2018-02-20] MEDS ORDERED: SODIUM PHOS,M-BASIC-D-BASIC 15 MM in DEXT 5% WATER 245 ML IV SCH (12:00)
[2018-02-20] MEDS: MORPHINE SULFATE 10 MG/ML CPJ IV PRN (12:40)
[2018-02-20 19:09] LABS: BG BASE EXCESS 5.4 mmol/L (-2.0-2.0); BG CARBOXYHEMOGLOBIN 0.2 % (0.5-1.5); BG DEOXYHEMOGLOBIN 0.9 % (0.0-5.0); BG FRACTION INSPIRED OXYGEN 100; BG METHEMOGLOBIN 0.2 % (0.0-1.5); BG OXYGEN SATURATION 99.1 % (92.0-98.5); BG OXYHEMOGLOBIN 98.7 % (94.0-97.0); BG PCO2 44.6 mmHg (35.0-45.0); BG PH 7.446 (7.350-7.450); BG PO2 214.1 mmHg (75.0-100.0); BG SAMPLE SITE RIGHT RADIAL; BG TOTAL HEMOGLOBIN 9.1 g/dL (12.0-18.0); BG VENT MODE MASK - NRB
[2018-02-21] VITALS (88 sets, daily range): BP systolic 89–161; BP diastolic 55–115
[2018-02-21] MEDS: IPRATROPIUM/ALBUTEROL 0.5-3(2.5)MG/3ML NEB HHN SCH ×6 (00:08→21:00)
[2018-02-21] MEDS: METOCLOPRAMIDE HCL 10MG/2ML VIAL IV SCH ×4 (00:14→17:22)
[2018-02-21] MEDS: NOREPINEPHRINE 16 MG in DEXT 5% WATER 234 ML IV PRN (03:14)
[2018-02-21] MEDS: MORPHINE SULFATE 10 MG/ML CPJ IV PRN ×2 (03:21→11:15)
[2018-02-21 05:31] LABS: CHLORIDE 96 mEq/L (98-107)
[2018-02-21 05:38] LABS: HEMATOCRIT. 24.1 % (36.0-48.0); HEMOGLOBIN. 8.5 g/dL (12.0-16.0); MEAN CORPUSCULAR HEMOGLOBIN 33.5 pg (28.0-32.0); MEAN CORPUSCULAR VOLUME 95.2 fL (81.0-99.0); MEAN PLATELET VOLUME 9.1 fl (7.4-10.4); PLATELET 245 x1000/uL (130-400); RED BLOOD CELL COUNT 2.53 mill/uL (4.2-5.4); RED CELL DISTRIBUTION WIDTH 15.5 % (11.6-14.6)
[2018-02-21 05:41] LABS: PHOSPHORUS 2.9 mg/dL (2.5-4.9)
[2018-02-21] MEDS: INSULIN LISPRO 100 UNITS/ML SUBCUT SCH ×4 (06:00→17:43)
[2018-02-21] MEDS: BLOOD SUGAR DIAGNOSTIC STRIP TEST SCH ×4 (06:06→17:23)
[2018-02-21] MEDS: FERROUS SULFATE 300MG/5ML UDC PO SCH ×3 (06:07→17:22)
[2018-02-21 08:54] LABS: PLATELET ESTIMATE NORMAL
[2018-02-21] MEDS: FUROSEMIDE 40MG/4ML VIAL IVP SCH (08:56)
[2018-02-21] MEDS: LEVETIRACETAM 500 MG in SODIUM CHLORIDE 0.9% 100 ML IV SCH ×2 (08:56→21:17)
[2018-02-21] MEDS: PANTOPRAZOLE SODIUM 40 MG/VIAL IV SCH (08:56)
[2018-02-21] MEDS: DOCUSATE SODIUM SUGAR FREE 100MG/10ML UDC NG SCH ×2 (08:56→17:23)
[2018-02-21] MEDS: PSYLLIUM SEED PACKET PO SCH ×3 (08:57→17:23)
[2018-02-21] MEDS: QUETIAPINE FUMARATE 25MG TABLET NG SCH ×2 (08:57→21:18)
[2018-02-21] MEDS: NYSTATIN POWDER 15GM TOP SCH ×2 (08:58→17:23)
[2018-02-21 09:23] LABS: BG BASE EXCESS 9.7 mmol/L (-2.0-2.0); BG CARBOXYHEMOGLOBIN 0.7 % (0.5-1.5); BG DEOXYHEMOGLOBIN 3.5 % (0.0-5.0); BG FRACTION INSPIRED OXYGEN 50; BG HCO3 ACT 34.8 mmol/L (22.0-26.0); BG METHEMOGLOBIN 0.4 % (0.0-1.5); BG OXYGEN SATURATION 96.5 % (92.0-98.5); BG OXYHEMOGLOBIN 95.4 % (94.0-97.0); BG PCO2 50.7 mmHg (35.0-45.0); BG PH 7.454 (7.350-7.450); BG PO2 89.9 mmHg (75.0-100.0); BG SAMPLE SITE RIGHT RADIAL; BG TOTAL HEMOGLOBIN 8.9 g/dL (12.0-18.0); BG VENT MODE MASK - VENTI
[2018-02-21] MEDS: MIDODRINE HCL 5MG TABLET PO SCH ×2 (11:07→17:23)
[2018-02-21] MEDS: BISACODYL 10MG SUPP PR SCH (11:07)
[2018-02-21] MEDS: ACETYLCYSTEINE 100MG/ML 10% VIAL 4ML INH SCH ×2 (12:01→16:25)
[2018-02-21] MEDS: LORAZEPAM 2MG/ML CPJ IV PRN (14:33)
[2018-02-22] VITALS (41 sets, daily range): BP systolic 68–140; BP diastolic 43–90
[2018-02-22] MEDS: IPRATROPIUM/ALBUTEROL 0.5-3(2.5)MG/3ML NEB HHN SCH ×4 (00:32→11:14)
[2018-02-22] MEDS: ACETYLCYSTEINE 100MG/ML 10% VIAL 4ML INH SCH ×2 (00:33→07:42)
[2018-02-22] MEDS: METOCLOPRAMIDE HCL 10MG/2ML VIAL IV SCH ×3 (00:56→12:08)
[2018-02-22] MEDS: BLOOD SUGAR DIAGNOSTIC STRIP TEST SCH ×3 (00:57→11:16)
[2018-02-22] MEDS: INSULIN LISPRO 100 UNITS/ML SUBCUT SCH ×3 (06:00→11:51)
[2018-02-22 06:23] LABS: HEMOGLOBIN. 7.9 g/dL (12.0-16.0); MEAN CORPUSCULAR HEMOGLOBIN 32.9 pg (28.0-32.0); MEAN CORPUSCULAR VOLUME 95.5 fL (81.0-99.0); MEAN PLATELET VOLUME 9.1 fl (7.4-10.4); PLATELET 205 x1000/uL (130-400); RED BLOOD CELL COUNT 2.41 mill/uL (4.2-5.4); RED CELL DISTRIBUTION WIDTH 15.5 % (11.6-14.6)
[2018-02-22 06:35] LABS: CHLORIDE 96 mEq/L (98-107)
[2018-02-22 07:31] LABS: PLATELET ESTIMATE NORMAL
[2018-02-22] MEDS: FERROUS SULFATE 300MG/5ML UDC PO SCH ×2 (07:58→12:08)
[2018-02-22 08:40] LABS: BG BASE EXCESS 11.3 mmol/L (-2.0-2.0); BG BILEVEL POS AIRWAY PRESSURE 15/5; BG CARBOXYHEMOGLOBIN 0.5 % (0.5-1.5); BG DEOXYHEMOGLOBIN 3.7 % (0.0-5.0); BG FRACTION INSPIRED OXYGEN 50; BG HCO3 ACT 36.2 mmol/L (22.0-26.0); BG METHEMOGLOBIN 0.5 % (0.0-1.5); BG OXYGEN SATURATION 96.3 % (92.0-98.5); BG OXYHEMOGLOBIN 95.3 % (94.0-97.0); BG PCO2 51.3 mmHg (35.0-45.0); BG PH 7.467 (7.350-7.450); BG PO2 88.6 mmHg (75.0-100.0); BG SAMPLE SITE RIGHT RADIAL; BG TOTAL HEMOGLOBIN 8.4 g/dL (12.0-18.0); BG VENT MODE MASK - BIPAP; BG VENT RATE 16 set
[2018-02-22] MEDS ORDERED: LACTOBACILLUS GG CAPSULE PO SCH (09:00)
[2018-02-22] MEDS: ENOXAPARIN 40MG/0.4ML SYR SUBCUT SCH ×2 (09:00→09:05)
[2018-02-22] MEDS: FUROSEMIDE 40MG/4ML VIAL IVP SCH (09:04)
[2018-02-22] MEDS: DOCUSATE SODIUM SUGAR FREE 100MG/10ML UDC NG SCH (09:04)
[2018-02-22] MEDS: BISACODYL 10MG SUPP PR SCH (09:04)
[2018-02-22] MEDS: PANTOPRAZOLE SODIUM 40 MG/VIAL IV SCH (09:04)
[2018-02-22] MEDS: LEVETIRACETAM 500 MG in SODIUM CHLORIDE 0.9% 100 ML IV SCH (09:04)
[2018-02-22] MEDS: MIDODRINE HCL 5MG TABLET PO SCH ×2 (09:05→12:09)
[2018-02-22] MEDS: QUETIAPINE FUMARATE 25MG TABLET NG SCH (09:05)
[2018-02-22] MEDS: NYSTATIN POWDER 15GM TOP SCH (09:05)
[2018-02-22] MEDS: PSYLLIUM SEED PACKET PO SCH ×2 (09:06→12:08)
[2018-02-22] MEDS ORDERED: POTASSIUM CHLORIDE 20MEQ/PACKET PO NR (09:45)
[2018-02-22] MEDS: NOREPINEPHRINE 16 MG in DEXT 5% WATER 234 ML IV PRN (09:51)
[2018-02-22] MEDS ORDERED: PROPOFOL 10MG/ML 100ML 100 ML IV PRN (11:00)
[2018-02-22 12:08] LABS: BG BASE EXCESS 6.1 mmol/L (-2.0-2.0); BG DEOXYHEMOGLOBIN 1.6 % (0.0-5.0); BG FRACTION INSPIRED OXYGEN 100; BG HCO3 ACT 30.1 mmol/L (22.0-26.0); BG METHEMOGLOBIN 0.4 % (0.0-1.5); BG OXYGEN SATURATION 98.4 % (92.0-98.5); BG PH 7.483 (7.350-7.450); BG PO2 138.2 mmHg (75.0-100.0); BG SAMPLE SITE RIGHT RADIAL; BG TIDAL VOLUME(mL) 450 mL; BG TOTAL HEMOGLOBIN 8.9 g/dL (12.0-18.0); BG VENT MODE VENT - A/C; BG VENT RATE 14 set
[2018-02-22] MEDS ORDERED: ETOMIDATE 2MG/ML 10ML VIAL IV ONE (13:30)
[2018-02-22] MEDS ORDERED: SODIUM CHLORIDE 0.9% 10ML VIAL ONE (13:30)
[2018-02-22] MEDS ORDERED: VECURONIUM BROMIDE 10 MG/VIAL IV ONE (13:30)
[2018-02-22] MEDS ORDERED: ATROPINE SULFATE 1MG/10ML SYR ONE (14:14)
== END 2018-02-22 15:13 | disposition expired | DRG 870 ==
LOC: ER 11:35 → EDBEDREQ 14:22 → EDBEDREQTM 14:22 → EDBEDREQSVC 14:22 → EDBEDREQTM 15:21 → EDBEDREQ 15:37 → EDBEDREQSVC 15:37 → EDBEDREQTM 15:37 → EDBEDREQ 18:52 → EDBEDREQSVC 18:52 → ENRESERV 21:30 → MICUSO 21:55
PROVIDERS: ADMIT Internal Medicine Nephrology; ATTEND Internal Medicine Nephrology
PROC: 5A1955Z Respiratory Ventilation, Greater than 96 Consecutive Hours (ICD-10-PCS; principal; 2018-02-07)
PROC: 5A09357 Assistance with Respiratory Ventilation, Less than 24 Consecutive Hours, Continuous Positive Airway Pressure (ICD-10-PCS; 2018-02-07)
PROC: 0BH17EZ Insertion of Endotracheal Airway into Trachea, Via Natural or Artificial Opening (ICD-10-PCS; 2018-02-07)
PROC: 4A00X4Z Measurement of Central Nervous Electrical Activity, External Approach (ICD-10-PCS; 2018-02-09)
PROC: 02HV33Z Insertion of Infusion Device into Superior Vena Cava, Percutaneous Approach (ICD-10-PCS; 2018-02-09)
PROC: B548ZZA Ultrasonography of Superior Vena Cava, Guidance (ICD-10-PCS; 2018-02-09)
PROC: 5A09357 Assistance with Respiratory Ventilation, Less than 24 Consecutive Hours, Continuous Positive Airway Pressure (ICD-10-PCS; 2018-02-21)
PROC: 5A12012 Performance of Cardiac Output, Single, Manual (ICD-10-PCS; 2018-02-22)
PROC: 0BH17EZ Insertion of Endotracheal Airway into Trachea, Via Natural or Artificial Opening (ICD-10-PCS; 2018-02-22)
PROC: 5A1935Z Respiratory Ventilation, Less than 24 Consecutive Hours (ICD-10-PCS; 2018-02-22)
PROC: 30233N1 Transfusion of Nonautologous Red Blood Cells into Peripheral Vein, Percutaneous Approach (ICD-10-PCS; 2018-02-22)
DX: A41.9 Sepsis, unspecified organism (principal); E43 Unspecified severe protein-calorie malnutrition; J96.02 Acute respiratory failure with hypercapnia; G92 Toxic encephalopathy; K72.00 Acute and subacute hepatic failure without coma; J15.6 Pneumonia due to other Gram-negative bacteria; R65.21 Severe sepsis with septic shock; J44.1 Chronic obstructive pulmonary disease with (acute) exacerbation; E87.0 Hyperosmolality and hypernatremia; N39.0 Urinary tract infection, site not specified; J44.0 Chronic obstructive pulmonary disease with (acute) lower respiratory infection; I27.20 Pulmonary hypertension, unspecified; E87.6 Hypokalemia; E11.9 Type 2 diabetes mellitus without complications; E78.5 Hyperlipidemia, unspecified; K76.89 Other specified diseases of liver; F03.90 Unspecified dementia, unspecified severity, without behavioral disturbance, psychotic disturbance, mood disturbance, and anxiety; K76.9 Liver disease, unspecified; D69.6 Thrombocytopenia, unspecified; E78.00 Pure hypercholesterolemia, unspecified; E83.42 Hypomagnesemia; D63.8 Anemia in other chronic diseases classified elsewhere; G40.909 Epilepsy, unspecified, not intractable, without status epilepticus; I07.1 Rheumatic tricuspid insufficiency; I10 Essential (primary) hypertension; R14.0 Abdominal distension (gaseous); K59.00 Constipation, unspecified; Z16.12 Extended spectrum beta lactamase (ESBL) resistance; B95.2 Enterococcus as the cause of diseases classified elsewhere; Z16.21 Resistance to vancomycin; B96.20 Unspecified Escherichia coli [E. coli] as the cause of diseases classified elsewhere; K21.9 Gastro-esophageal reflux disease without esophagitis; R13.10 Dysphagia, unspecified; Z78.1 Physical restraint status; Z86.73 Personal history of transient ischemic attack (TIA), and cerebral infarction without residual deficits; Z68.21 Body mass index [BMI] 21.0-21.9, adult; Z88.8 Allergy status to other drugs, medicaments and biological substances; Z79.82 Long term (current) use of aspirin; Z79.84 Long term (current) use of oral hypoglycemic drugs; Z79.899 Other long term (current) drug therapy
CPT/HCPCS: 36415; 36569; 36600; 70551; 71045; 74018; 74176; 76937; 80048; 80061; 80076; 80202; 80305; 82140; 82270; 82375; 82607; 82746; 82805; 82962; 83036; 83540; 83550; 83735; 84100; 84132; 84145; 84439; 84443; 84478; 84481; 84484; 86850; 86900; 86920; 87070; 87077; 87186; 87804; 92610; 93005; 93306; 93880; 94002; 94003; 94640; 94644; 94660; 96361; 96374; 96375; 97163; 97166; 99291; A6261; C1725; C9113; G0482; J0461; J1170; J1650; J1815; J1940; J1953; J2060; J2185; J2270; J2370; J2405; J2543; J2704; J2765; J2920; J2930; J3370; J3475; J3480; J3490; J7030; J7040; J7050; J7060; J7070; J7608; J7611; J7620; J7626; P9016; A4315